=== PATIENT | female | born 1995 | race African-American/Black ===

== ENCOUNTER 2017-02-06 01:56 | Emergency (ER) | payer OTHER ==
[~2017-02-06 01:56] MED LIST: BIRTH CONTROL PILL PO; CLARITIN10 M2 PO; ZOFRAN ODT4 MG PO
== END 2017-02-06 02:29 | disposition home or self-care (01) ==
LOC: SED 01:56
DX: R21 Rash and other nonspecific skin eruption (principal)
CPT/HCPCS: 96372; 99283; J1200

== ENCOUNTER 2017-05-27 21:52 | Emergency (ER) | payer OTHER | END 2017-05-28 02:30 | disposition JHD | LOC: SED 21:52 | DX: T78.3XXA Angioneurotic edema, initial encounter (principal); Z98.890 Other specified postprocedural states | CPT/HCPCS: 96372; 96374; 99284; J0171; J1100; J1200 ==